=== PATIENT | male | born 1950 | race African-American/Black ===

== ENCOUNTER 2018-05-08 20:32 | Inpatient (IN) | payer BC, OTHER ==
[~2018-05-08] VITALS: Ht 185.4 cm; Wt 124.7 kg
[~2018-05-08 20:32] MED LIST: ALLO100T MT; DIXL10 PO; INDO75CA3 PO; LOVA40TA73 PO; NIFE30TA94 PO; OMEP20CA10 PO; VALS320T16 PO
[2018-05-08] MEDS ORDERED: SODIUM CHLORIDE 0.9% 1,000 ML IV ONE (22:30)
[2018-05-08] MEDS ORDERED: NITROGLYCERIN 0.4MG TABLET SL SL PRN (22:30)
[2018-05-08] MEDS ORDERED: ONDANSETRON HCL 4MG/2ML INJ IV STA (22:30)
[2018-05-08] MEDS ORDERED: MORPHINE SULFATE 4 MG/ML CPJ (NOT FOR IM USE) IV STA (22:30)
[2018-05-09] MEDS ORDERED: MORPHINE SULFATE 4 MG/ML CPJ (NOT FOR IM USE) IV ONE (00:30)
[2018-05-09 01:27] LABS: BASOPHILS % 0.4 % (0.0-2.0); EOSINOPHILS % 0.4 % (0.0-5.0); HEMATOCRIT. 34.5 % (42.0-52.0); HEMOGLOBIN. 11.8 g/dL (14.0-18.0); LYMPHOCYTES % 15.6 % (20.0-50.0); MEAN CORPUSCULAR HEMOGLOBIN 29.6 pg (28.0-32.0); MEAN CORPUSCULAR VOLUME 86.9 fL (80.0-94.0); MEAN PLATELET VOLUME 8.5 fl (7.4-10.4); MONOCYTES % 11.6 % (2.0-8.0); PLATELET 248 x1000/uL (130-400); RED BLOOD CELL COUNT 3.97 mill/uL (4.7-6.1); RED CELL DISTRIBUTION WIDTH 14.1 % (11.6-14.6)
[2018-05-09 01:31] LABS: CHLORIDE 101 mEq/L (98-107)
[2018-05-09 01:45] LABS: D-DIMER 4.09 mg/L FEU (<0.50); INR 1.1; PARTIAL THROMBOPLASTIN TIME 30.3 sec (23.4-31.0); PROTHROMBIN TIME 10.9 sec (9.1-11.1)
[2018-05-09] MEDS ORDERED: ASPIRIN 325MG EC TABLET PO ONE (03:15)
[2018-05-09] MEDS ORDERED: HYDROMORPHONE HCL/PF 2MG/ML CPJ IV PRN (05:45)
[2018-05-09] MEDS ORDERED: DIPHENHYDRAMINE 50MG/ML VIAL IV PRN (05:45)
[2018-05-09] MEDS ORDERED: ACETAMINOPHEN 325MG TABLET PO PRN (05:45)
[2018-05-09] MEDS ORDERED: MAGNESIUM/ALUMINUM HYDROXIDE/SIMETHICONE 30ML UDC PO PRN (05:45)
[2018-05-09] MEDS ORDERED: LORAZEPAM 2MG/ML CPJ IV PRN (05:45)
[2018-05-09] MEDS ORDERED: DOCUSATE SODIUM 100MG CAPSULE PO PRN (05:45)
[2018-05-09] MEDS ORDERED: IPRATROPIUM/ALBUTEROL 0.5-3(2.5)MG/3ML NEB INH PRN (05:45)
[2018-05-09] MEDS ORDERED: HYDRALAZINE 20MG/ML VIAL IV PRN (05:45)
[2018-05-09] MEDS ORDERED: CLONIDINE 0.1MG TABLET PO PRN (05:45)
[2018-05-09] MEDS ORDERED: GUAIFENESIN 200MG/10ML SUGAR FREE UDC PO PRN (05:45)
[2018-05-09] MEDS ORDERED: NA PHOS,M-B/NA PHOS,DI-BA ENEMA 118ML PR PRN (05:45)
[2018-05-09] MEDS ORDERED: ONDANSETRON HCL 4MG/2ML INJ IV PRN (05:45)
[2018-05-09] MEDS ORDERED: POTASSIUM CHLORIDE 20MEQ TABLET SR PO SCH (06:00)
[2018-05-09 06:53] VITALS: BP 139/81
[2018-05-09 08:00] VITALS: BP 105/69
[2018-05-09] MEDS: ASPIRIN 81MG EC TABLET PO SCH (09:58)
[2018-05-09] MEDS: ENOXAPARIN 30MG/0.3ML SYR SUBCUT SCH ×2 (09:59→20:55)
[2018-05-09] MEDS: SODIUM CHLORIDE 0.9% INJ 3ML FLUSH IVF SCH ×3 (10:00→21:03)
[2018-05-09] MEDS: HYDROCODONE/ACETAMINOPHEN 10/325MG TABLET PO PRN (10:10)
[2018-05-09 10:27] LABS: CREATINE KINASE MB FRACTION 1.4 ng/mL (0.5-3.6)
[2018-05-09] MEDS: NIFEDIPINE XL 30MG TAB PO SCH ×2 (11:30→20:56)
[2018-05-09 12:00] VITALS: BP 105/59
[2018-05-09] MEDS: OMEPRAZOLE 20MG CAPSULE EXTENDED RELEASE PO SCH (13:13)
[2018-05-09] MEDS ORDERED: MECL12.584 PO (14:57)
[2018-05-09 15:50] LABS: CREATINE KINASE 209 IU/L (39-308)
[2018-05-09 15:53] LABS: CREATINE KINASE MB FRACTION 1.2 ng/mL (0.5-3.6)
[2018-05-09 16:00] VITALS: BP 113/62
[2018-05-09 16:03] LABS: CLARITY URINE CLEAR (CLEAR); COLOR URINE DARK YELLOW (YELLOW); KETONES URINE NEGATIVE (NEGATIVE); LEUKOCYTE ESTERASE URINE NEGATIVE (NEGATIVE); NITRITE URINE NEGATIVE (NEGATIVE); OCCULT BLOOD URINE NEGATIVE (NEGATIVE); PROTEIN URINE NEGATIVE (NEGATIVE); SPECIFIC GRAVITY URINE 1.023 (1.005-1.030)
[2018-05-09 16:16] LABS: *AMPHETAMINES SCREEN URINE NEGATIVE (NEGATIVE); *BARBITURATES SCREEN URINE NEGATIVE (NEGATIVE); *BENZODIAZEPINES SCREEN URINE NEGATIVE (NEGATIVE); *COCAINE SCREEN URINE NEGATIVE (NEGATIVE); METHADONE URINE SCREEN NEGATIVE (NEGATIVE)
[2018-05-09 16:17] LABS: CANNABINOID URINE SCREEN NEGATIVE (NEGATIVE); OPIATES URINE SCREEN PRESUMTIVE POSITIVE (NEGATIVE); PHENCYCLIDINE URINE SCREEN NEGATIVE (NEGATIVE)
[2018-05-09] MEDS: MECLIZINE 12.5MG TABLET PO PRN (16:51)
[2018-05-09] MEDS: ALLOPURINOL 100 MG TABLET PO SCH (16:51)
[2018-05-09] MEDS ORDERED: MEDICATION NOT ON FORMULARY EA (Allopurinol 1 TAB) MT SCH (17:00)
[2018-05-09 20:48] VITALS: BP 104/59
[2018-05-10] VITALS: BP 113/51
[2018-05-10 04:38] VITALS: BP 117/63
[2018-05-10] MEDS: SODIUM CHLORIDE 0.9% INJ 3ML FLUSH IVF SCH ×3 (05:57→21:05)
[2018-05-10] MEDS: OMEPRAZOLE 20MG CAPSULE EXTENDED RELEASE PO SCH (06:32)
[2018-05-10 07:38] LABS: BASOPHILS % 0.7 % (0.0-2.0); EOSINOPHILS % 2.5 % (0.0-5.0); HEMATOCRIT. 34.9 % (42.0-52.0); HEMOGLOBIN. 11.7 g/dL (14.0-18.0); LYMPHOCYTES % 18.3 % (20.0-50.0); MEAN CORPUSCULAR HEMOGLOBIN 29.2 pg (28.0-32.0); MEAN CORPUSCULAR VOLUME 87.6 fL (80.0-94.0); MEAN PLATELET VOLUME 8.7 fl (7.4-10.4); MONOCYTES % 11.5 % (2.0-8.0); PLATELET 238 x1000/uL (130-400); RED BLOOD CELL COUNT 3.99 mill/uL (4.7-6.1); RED CELL DISTRIBUTION WIDTH 13.7 % (11.6-14.6)
[2018-05-10 08:01] VITALS: BP 125/59
[2018-05-10] MEDS: HYDROCODONE/ACETAMINOPHEN 10/325MG TABLET PO PRN ×2 (08:19→14:44)
[2018-05-10] MEDS: ENOXAPARIN 30MG/0.3ML SYR SUBCUT SCH ×2 (08:22→20:36)
[2018-05-10] MEDS: ASPIRIN 81MG EC TABLET PO SCH (09:05)
[2018-05-10] MEDS: ALLOPURINOL 100 MG TABLET PO SCH ×2 (09:05→17:31)
[2018-05-10] MEDS: NIFEDIPINE XL 30MG TAB PO SCH ×2 (09:05→20:36)
[2018-05-10 09:12] LABS: CHLORIDE 101 mEq/L (98-107)
[2018-05-10 09:30] LABS: LDL CHOLESTEROL 83 mg/dL (5-100)
[2018-05-10 09:31] LABS: CREATINE KINASE 144 IU/L (39-308); CREATINE KINASE MB FRACTION < 1.0 ng/mL (0.5-3.6)
[2018-05-10 09:32] LABS: HDL CHOLESTEROL 38 mg/dL (40-59); T4 FREE 1.31 ng/dL (0.76-1.46)
[2018-05-10] MEDS: SODIUM CHLORIDE 0.45% 1,000 ML IV SCH (12:42)
[2018-05-10 14:40] VITALS: BP 138/58
[2018-05-10 19:12] VITALS: BP 124/69
[2018-05-10 20:00] VITALS: BP 120/47
[2018-05-11] VITALS: BP 100/52
[2018-05-11 04:00] VITALS: BP 114/52
[2018-05-11] MEDS: SODIUM CHLORIDE 0.45% 1,000 ML IV SCH (05:03)
[2018-05-11] MEDS: SODIUM CHLORIDE 0.9% INJ 3ML FLUSH IVF SCH ×2 (05:49→14:38)
[2018-05-11] MEDS: OMEPRAZOLE 20MG CAPSULE EXTENDED RELEASE PO SCH (06:33)
[2018-05-11 08:00] VITALS: BP 136/73
[2018-05-11] MEDS: ASPIRIN 81MG EC TABLET PO SCH (09:06)
[2018-05-11] MEDS: NIFEDIPINE XL 30MG TAB PO SCH (09:06)
[2018-05-11] MEDS: ALLOPURINOL 100 MG TABLET PO SCH (09:06)
[2018-05-11] MEDS: ENOXAPARIN 30MG/0.3ML SYR SUBCUT SCH (09:07)
[2018-05-11 09:27] LABS: BASOPHILS % 0.5 % (0.0-2.0); HEMATOCRIT. 34.5 % (42.0-52.0); HEMOGLOBIN. 11.6 g/dL (14.0-18.0); LYMPHOCYTES % 23.7 % (20.0-50.0); MEAN CORPUSCULAR HEMOGLOBIN 29.3 pg (28.0-32.0); MEAN CORPUSCULAR VOLUME 86.8 fL (80.0-94.0); MEAN PLATELET VOLUME 8.6 fl (7.4-10.4); MONOCYTES % 14.5 % (2.0-8.0); NEUTROPHILS % 58.3 % (40.0-76.0); PLATELET 246 x1000/uL (130-400); RED BLOOD CELL COUNT 3.97 mill/uL (4.7-6.1); RED CELL DISTRIBUTION WIDTH 13.9 % (11.6-14.6)
[2018-05-11 09:44] LABS: CHLORIDE 103 mEq/L (98-107)
[2018-05-11] MEDS ORDERED: POTASSIUM CHLORIDE 20MEQ TABLET SR PO NR (10:30)
[2018-05-11 12:00] VITALS: BP 131/75
[2018-05-11] MEDS: HYDROCODONE/ACETAMINOPHEN 10/325MG TABLET PO PRN (14:16)
[2018-05-11] MEDS: MECLIZINE 12.5MG TABLET PO PRN (14:22)
[2018-05-11 15:59] VITALS: BP 128/70
[2018-05-11 16:00] VITALS: BP 125/61
[2018-05-12 09:07] LABS: COMPLEMENT C3 221 mg/dL (82-167)
[2018-05-12 17:08] LABS: ANTI-NUCLEAR ANTIBODIES DIRECT Negative (Negative)
== END 2018-05-11 17:40 | disposition home or self-care (01) | DRG 683 ==
LOC: ER 20:32 → EDBEDREQ 05-09 02:55 → ENRESERV 05-09 05:26 → 6WST 05-09 06:48
PROVIDERS: ADMIT Internal Medicine; ATTEND Internal Medicine
DX: N17.9 Acute kidney failure, unspecified (principal); E44.0 Moderate protein-calorie malnutrition; I13.0 Hypertensive heart and chronic kidney disease with heart failure and stage 1 through stage 4 chronic kidney disease, or unspecified chronic kidney disease; R07.89 Other chest pain; M10.9 Gout, unspecified; K21.9 Gastro-esophageal reflux disease without esophagitis; R10.9 Unspecified abdominal pain; E86.9 Volume depletion, unspecified; E78.5 Hyperlipidemia, unspecified; E78.00 Pure hypercholesterolemia, unspecified; R07.9 Chest pain, unspecified; I25.10 Atherosclerotic heart disease of native coronary artery without angina pectoris; I50.9 Heart failure, unspecified; E87.6 Hypokalemia; N18.9 Chronic kidney disease, unspecified; D64.9 Anemia, unspecified; Z85.46 Personal history of malignant neoplasm of prostate; Z92.3 Personal history of irradiation; Z68.36 Body mass index [BMI] 36.0-36.9, adult
CPT/HCPCS: 36415; 71045; 73560; 73562; 74176; 78582; 80048; 80061; 80305; 82550; 82553; 83735; 83880; 84439; 84443; 84484; 84550; 85379; 86038; 86160; 93005; 93306; 93970; 96361; 96374; 96375; 99285; A9558; J1170; J1650; J2270; J2405; J7030; J8597

== ENCOUNTER 2019-10-16 16:16 | Inpatient (IN) | payer OTHER ==
[~2019-10-16] VITALS: Ht 185.4 cm; Wt 118.4 kg
[~2019-10-16 16:16] MED LIST changes: -DIXL10 PO; -INDO75CA3 PO; +MECL-183 PO; -OMEP20CA10 PO; +OMEP20CA14 PO; -VALS320T16 PO
[2019-10-16] MEDS ORDERED: ASPI-1497 PO (16:20)
[2019-10-16] MEDS ORDERED: SODIUM CHLORIDE 0.9% 1,000 ML IV ONE (16:32)
[2019-10-16 17:25] LABS: BASOPHILS % 0.2 % (0.0-2.0); HEMATOCRIT. 41.4 % (42.0-52.0); HEMOGLOBIN. 13.9 g/dL (14.0-18.0); LYMPHOCYTES % 50.5 % (20.0-50.0); MEAN CORPUSCULAR HEMOGLOBIN 32.4 pg (28.0-32.0); MEAN CORPUSCULAR VOLUME 96.9 fL (80.0-94.0); MEAN PLATELET VOLUME 11.6 fl (7.4-10.4); MONOCYTES % 7.1 % (2.0-8.0); NEUTROPHILS % 41.2 % (40.0-76.0); PLATELET 200 x1000/uL (130-400); RED BLOOD CELL COUNT 4.28 mill/uL (4.7-6.1); RED CELL DISTRIBUTION WIDTH 13.7 % (11.6-14.6)
[2019-10-16] MEDS ORDERED: FENTANYL CITRATE/PF 50MCG/ML 2ML VIAL IV ONE (17:30)
[2019-10-16 17:31] LABS: PROTHROMBIN TIME 10.8 sec (9.6-11.0)
[2019-10-16 17:39] LABS: CHLORIDE 87 mEq/L (98-107)
[2019-10-16 17:43] LABS: ETHANOL BLOOD < 10 mg/dL
[2019-10-16 18:14] LABS: CLARITY URINE CLOUDY (CLEAR); COLOR URINE RED (YELLOW); KETONES URINE NEGATIVE (NEGATIVE); LEUKOCYTE ESTERASE URINE 2+ (NEGATIVE); NITRITE URINE POSITIVE (NEGATIVE); OCCULT BLOOD URINE 2+ (NEGATIVE); PROTEIN URINE 2+ (NEGATIVE); SPECIFIC GRAVITY URINE 1.032 (1.005-1.030); UROBILINOGEN URINE 0.2 E.U./dL (0.2-1.0)
[2019-10-16] MEDS ORDERED: INSULIN REGULAR (HUMULIN R) 300UNITS/3ML IV ONE (18:15)
[2019-10-16] MEDS ORDERED: CEFTRIAXONE 1 G PREMIX 50 ML IV ONE (18:45)
[2019-10-16 18:46] LABS: *AMPHETAMINES SCREEN URINE NEGATIVE (NEGATIVE); *BARBITURATES SCREEN URINE NEGATIVE (NEGATIVE)
[2019-10-16 18:47] LABS: *BENZODIAZEPINES SCREEN URINE NEGATIVE (NEGATIVE); *COCAINE SCREEN URINE NEGATIVE (NEGATIVE); CANNABINOID URINE SCREEN NEGATIVE (NEGATIVE); METHADONE URINE SCREEN NEGATIVE (NEGATIVE); OPIATES URINE SCREEN NEGATIVE (NEGATIVE); PHENCYCLIDINE URINE SCREEN NEGATIVE (NEGATIVE)
[2019-10-16] MEDS ORDERED: DEXTROSE 50% WATER 50ML SYRINGE IV PRN (20:15)
[2019-10-16] MEDS: SODIUM CHLORIDE 0.9% 1,000 ML IV SCH (20:15)
[2019-10-16] MEDS: BLOOD SUGAR DIAGNOSTIC STRIP TEST SCH (21:55)
[2019-10-16] MEDS: INSULIN GLARGINE UD 100 UNITS/ML SYR SUBCUT SCH (22:00)
[2019-10-16] MEDS: INSULIN LISPRO 100 UNITS/ML SUBCUT SCH (22:48)
[2019-10-17] VITALS (9 sets, daily range): BP systolic 97–137; BP diastolic 51–76
[2019-10-17 05:37] LABS: BASOPHILS % 0.2 % (0.0-2.0); EOSINOPHILS % 0.9 % (0.0-5.0); HEMATOCRIT. 43.3 % (42.0-52.0); HEMOGLOBIN. 14.7 g/dL (14.0-18.0); LYMPHOCYTES % 40.4 % (20.0-50.0); MEAN CORPUSCULAR HEMOGLOBIN 31.9 pg (28.0-32.0); MEAN CORPUSCULAR VOLUME 93.7 fL (80.0-94.0); MEAN PLATELET VOLUME 11.3 fl (7.4-10.4); MONOCYTES % 8.2 % (2.0-8.0); NEUTROPHILS % 50.3 % (40.0-76.0); PLATELET 219 x1000/uL (130-400); RED BLOOD CELL COUNT 4.61 mill/uL (4.7-6.1); RED CELL DISTRIBUTION WIDTH 14.1 % (11.6-14.6)
[2019-10-17] MEDS: SODIUM CHLORIDE 0.9% 1,000 ML IV SCH ×2 (06:47→22:46)
[2019-10-17] MEDS: INSULIN LISPRO 100 UNITS/ML SUBCUT SCH ×7 (07:01→22:54)
[2019-10-17] MEDS: BLOOD SUGAR DIAGNOSTIC STRIP TEST SCH ×4 (07:30→21:00)
[2019-10-17] MEDS: INSULIN GLARGINE UD 100 UNITS/ML SYR SUBCUT SCH (11:51)
[2019-10-17] MEDS ORDERED: CEFTRIAXONE 1 G PREMIX 50 ML IV SCH (18:00)
[2019-10-17] MEDS: ACETAMINOPHEN 325MG TABLET PO PRN (18:18)
[2019-10-17] MEDS: TAMSULOSIN HCL 0.4MG SR CAPSULE PO SCH (18:18)
[2019-10-17] MEDS: ONDANSETRON HCL 4MG/2ML INJ IV PRN (21:45)
[2019-10-17] MEDS: CEFTRIAXONE 1 G PREMIX 50 ML IV SCH (22:46)
[2019-10-18] VITALS (12 sets, daily range): BP systolic 91–150; BP diastolic 43–71
[2019-10-18] MEDS: INSULIN GLARGINE UD 100 UNITS/ML SYR SUBCUT SCH ×2 (00:24→10:23)
[2019-10-18 05:11] LABS: BASOPHILS % 0.5 % (0.0-2.0); EOSINOPHILS % 1.1 % (0.0-5.0); HEMATOCRIT. 41.4 % (42.0-52.0); HEMOGLOBIN. 14.4 g/dL (14.0-18.0); LYMPHOCYTES % 51.3 % (20.0-50.0); MEAN CORPUSCULAR HEMOGLOBIN 32.3 pg (28.0-32.0); MEAN PLATELET VOLUME 11.2 fl (7.4-10.4); NEUTROPHILS % 40.1 % (40.0-76.0); PLATELET 191 x1000/uL (130-400); RED BLOOD CELL COUNT 4.45 mill/uL (4.7-6.1); RED CELL DISTRIBUTION WIDTH 14.1 % (11.6-14.6)
[2019-10-18] MEDS: BLOOD SUGAR DIAGNOSTIC STRIP TEST SCH ×4 (07:32→21:23)
[2019-10-18] MEDS: ACETAMINOPHEN 325MG TABLET PO PRN ×3 (08:00→23:49)
[2019-10-18] MEDS: TAMSULOSIN HCL 0.4MG SR CAPSULE PO SCH (08:00)
[2019-10-18] MEDS: INSULIN LISPRO 100 UNITS/ML SUBCUT SCH ×7 (08:01→21:37)
[2019-10-18] MEDS: SODIUM CHLORIDE 0.9% 1,000 ML IV SCH (12:42)
[2019-10-18] MEDS ORDERED: LACTULOSE 20G/30ML UDC PO SCH (19:00)
[2019-10-18] MEDS ORDERED: ASPIRIN 81MG TABLET PO SCH (19:00)
[2019-10-18] MEDS: CEFTRIAXONE 1 G PREMIX 50 ML IV SCH (21:23)
[2019-10-18] MEDS ORDERED: INSULIN GLARGINE UD 100 UNITS/ML SYR SUBCUT SCH (22:00)
[2019-10-19] VITALS (10 sets, daily range): BP systolic 107–149; BP diastolic 47–84
[2019-10-19] MEDS: INSULIN GLARGINE UD 100 UNITS/ML SYR SUBCUT SCH ×2 (01:13→10:30)
[2019-10-19] MEDS: SODIUM CHLORIDE 0.9% 1,000 ML IV SCH ×2 (01:15→15:23)
[2019-10-19] MEDS: ONDANSETRON HCL 4MG/2ML INJ IV PRN (04:10)
[2019-10-19] MEDS: BLOOD SUGAR DIAGNOSTIC STRIP TEST SCH ×2 (07:34→13:01)
[2019-10-19] MEDS: TAMSULOSIN HCL 0.4MG SR CAPSULE PO SCH (08:47)
[2019-10-19] MEDS: INSULIN LISPRO 100 UNITS/ML SUBCUT SCH ×2 (08:47→13:22)
[2019-10-19] MEDS ORDERED: ASPIRIN 81MG TABLET PO SCH (09:00)
[2019-10-19] MEDS ORDERED: POTASSIUM CHLORIDE INJ 40 MEQ in DEXT 5% WATER 250 ML IV NR (10:00)
[2019-10-19] MEDS ORDERED: DIATR MEGLU/DIATRIZOATE SOLN 30ML PO NR (10:45)
[2019-10-19] MEDS ORDERED: DIATR MEGLU/DIATRIZOATE SOLN 30ML ONE (11:22)
[2019-10-19] MEDS ORDERED: IOHEXOL-300 100 ML BOTTLE ONE (11:23)
[2019-10-19] MEDS ORDERED: MORPHINE SULFATE 2 MG/ML CPJ (NOT FOR IM USE) IV NR (12:45)
[2019-10-19] MEDS ORDERED: FAMOTIDINE 20MG/2ML VIAL IV SCH (12:45)
[2019-10-19] MEDS ORDERED: LANTUSUD SUBCUT (13:38)
[2019-10-19] MEDS ORDERED: TAMS-11 MT ×2 (13:39→17:35)
[2019-10-19] MEDS ORDERED: TRAM50TA3 MT (17:35)
[2019-10-19] MEDS ORDERED: INSU100I28 SQ (17:35)
== END 2019-10-19 19:07 | disposition home or self-care (01) | DRG 871 ==
LOC: ER 16:16 → 5EST 19:01 → EDBEDREQTM 19:05 → EDBEDREQ 19:05 → EDBEDREQSVC 19:05 → EDBEDREQTM 19:54 → EDBEDREQSVC 19:54 → EDBEDREQTM 20:02 → ENRESERV 20:56
PROVIDERS: ADMIT Internal Medicine; ATTEND Internal Medicine
DX: A41.9 Sepsis, unspecified organism (principal); N17.0 Acute kidney failure with tubular necrosis; K85.90 Acute pancreatitis without necrosis or infection, unspecified; N39.0 Urinary tract infection, site not specified; E87.1 Hypo-osmolality and hyponatremia; S37.22XA Contusion of bladder, initial encounter; S37.011A Minor contusion of right kidney, initial encounter; I10 Essential (primary) hypertension; E87.8 Other disorders of electrolyte and fluid balance, not elsewhere classified; E66.9 Obesity, unspecified; E11.65 Type 2 diabetes mellitus with hyperglycemia; E78.5 Hyperlipidemia, unspecified; M10.9 Gout, unspecified; E78.00 Pure hypercholesterolemia, unspecified; K76.0 Fatty (change of) liver, not elsewhere classified; R31.0 Gross hematuria; X58.XXXA Exposure to other specified factors, initial encounter; Z85.46 Personal history of malignant neoplasm of prostate; Z86.73 Personal history of transient ischemic attack (TIA), and cerebral infarction without residual deficits; Z90.79 Acquired absence of other genital organ(s); Z92.3 Personal history of irradiation; Z79.82 Long term (current) use of aspirin; Z79.899 Other long term (current) drug therapy; Z71.3 Dietary counseling and surveillance; Z68.34 Body mass index [BMI] 34.0-34.9, adult; Y93.89 Activity, other specified; Y92.89 Other specified places as the place of occurrence of the external cause; Y99.8 Other external cause status
CPT/HCPCS: 36415; 71045; 74176; 74177; 76770; 80048; 80053; 80305; 80320; 81003; 82010; 82533; 82962; 83036; 83605; 83930; 84484; 85025; 86850; 86900; 93005; 93970; 96365; 99291; J0696; J1815; J2270; J2405; J3480; J3490; J7030; J7060; Q9963; Q9967; G0480

== ENCOUNTER 2019-11-07 20:14 | Inpatient (IN) | payer OTHER ==
[~2019-11-07] VITALS: Ht 185.4 cm; Wt 117.6 kg
[~2019-11-07 20:14] MED LIST changes: +ASPI-1497 PO; +INSU100I28 SQ; +LANTUSUD SUBCUT; -NIFE30TA94 PO; +TAMS-11 MT; +TRAM50TA3 MT
[2019-11-07] MEDS ORDERED: SODIUM CHLORIDE 0.9% 1,000 ML IV ONE (20:48)
[2019-11-07] MEDS ORDERED: ONDANSETRON HCL 4MG/2ML INJ IV STA (20:48)
[2019-11-07 21:43] LABS: BASOPHILS % 0.3 % (0.0-2.0); HEMATOCRIT. 36.3 % (42.0-52.0); HEMOGLOBIN. 12.5 g/dL (14.0-18.0); LYMPHOCYTES % 51.2 % (20.0-50.0); MEAN CORPUSCULAR HEMOGLOBIN 32.1 pg (28.0-32.0); MEAN CORPUSCULAR VOLUME 93.4 fL (80.0-94.0); MEAN PLATELET VOLUME 9.5 fl (7.4-10.4); MONOCYTES % 4.9 % (2.0-8.0); NEUTROPHILS % 43.6 % (40.0-76.0); PLATELET 133 x1000/uL (130-400); RED BLOOD CELL COUNT 3.89 mill/uL (4.7-6.1); RED CELL DISTRIBUTION WIDTH 14.2 % (11.6-14.6)
[2019-11-07 21:50] LABS: CHLORIDE 99 mEq/L (98-107)
[2019-11-07 21:53] LABS: PROTHROMBIN TIME 10.9 sec (9.6-11.0)
[2019-11-07] MEDS ORDERED: MORPHINE SULFATE 4 MG/ML CPJ (NOT FOR IM USE) IV ONE (22:30)
[2019-11-07] MEDS ORDERED: SODIUM CHLORIDE 0.9% 100 ML IV ONE (22:30)
[2019-11-08 01:48] LABS: COLOR URINE YELLOW (YELLOW); KETONES URINE NEGATIVE (NEGATIVE); LEUKOCYTE ESTERASE URINE 1+ (NEGATIVE); NITRITE URINE NEGATIVE (NEGATIVE); OCCULT BLOOD URINE TRACE (NEGATIVE); PH URINE 6.5 (4.5-8.0); PROTEIN URINE 2+ (NEGATIVE); SPECIFIC GRAVITY URINE 1.009 (1.005-1.030)
[2019-11-08 01:51] LABS: CLARITY URINE HAZY (CLEAR)
[2019-11-08] MEDS ORDERED: ONDANSETRON HCL 4MG/2ML INJ IV PRN (10:30)
[2019-11-08] MEDS ORDERED: DEXTROSE 50% WATER 50ML SYRINGE IV PRN (10:45)
[2019-11-08] MEDS: BLOOD SUGAR DIAGNOSTIC STRIP TEST SCH ×4 (10:52→21:00)
[2019-11-08] MEDS: ENOXAPARIN 40MG/0.4ML SYR SUBCUT SCH (10:52)
[2019-11-08] MEDS: ACETAMINOPHEN 325MG TABLET PO PRN (10:53)
[2019-11-08] MEDS ORDERED: AZITHROMYCIN 500 MG in DEXT 5% WATER 250 ML IV SCH (11:00)
[2019-11-08] MEDS ORDERED: CEFTRIAXONE 1 G PREMIX 50 ML IV SCH (11:00)
[2019-11-08] MEDS ORDERED: KCL 20MEQ/100ML PREMIX 100 ML IV SCH (12:00)
[2019-11-08 13:04] LABS: PHOSPHORUS 2.8 mg/dL (2.5-4.9)
[2019-11-08] MEDS: INSULIN LISPRO 100 UNITS/ML SUBCUT SCH ×3 (15:05→21:00)
[2019-11-08 15:35] LABS: CREATINE KINASE 397 IU/L (39-308); CREATINE KINASE MB FRACTION < 1.0 ng/mL (0.5-3.6)
[2019-11-08 16:29] LABS: FERRITIN 1272 ng/mL (22-322)
[2019-11-08 16:40] LABS: HEPATITIS B SURFACE ANTIGEN NEGATIVE
[2019-11-08 17:09] LABS: HEPATITIS A AB IGM NEGATIVE (NEGATIVE)
[2019-11-08 21:00] VITALS: BP 110/51
[2019-11-08 23:20] LABS: CREATINE KINASE 450 IU/L (39-308)
[2019-11-08 23:21] LABS: CREATINE KINASE MB FRACTION < 1.0 ng/mL (0.5-3.6)
[2019-11-08] MEDS: MORPHINE SULFATE 2 MG/ML CPJ (NOT FOR IM USE) IV PRN (23:26)
[2019-11-09 00:02] VITALS: BP 110/51
[2019-11-09] MEDS ORDERED: AMLO5TAB88 PO (01:28)
[2019-11-09] MEDS ORDERED: CHLO25TA2 PO (01:29)
[2019-11-09] MEDS ORDERED: LISI-604 PO (01:30)
[2019-11-09] MEDS ORDERED: ALLO300T2 PO (01:32)
[2019-11-09 04:00] VITALS: BP 120/61
[2019-11-09] MEDS: ACETAMINOPHEN 325MG TABLET PO PRN (06:06)
[2019-11-09] MEDS: MORPHINE SULFATE 2 MG/ML CPJ (NOT FOR IM USE) IV PRN ×2 (06:07→10:08)
[2019-11-09 07:31] LABS: CHLORIDE 101 mEq/L (98-107)
[2019-11-09] MEDS: BLOOD SUGAR DIAGNOSTIC STRIP TEST SCH ×2 (07:32→12:40)
[2019-11-09 07:40] LABS: AMYLASE 90 IU/L (25-115)
[2019-11-09 07:41] LABS: BASOPHILS % 0.1 % (0.0-2.0); HEMATOCRIT. 32.1 % (42.0-52.0); LYMPHOCYTES % 40.9 % (20.0-50.0); MEAN CORPUSCULAR HEMOGLOBIN 31.8 pg (28.0-32.0); MEAN CORPUSCULAR VOLUME 93.1 fL (80.0-94.0); MEAN PLATELET VOLUME 10.5 fl (7.4-10.4); MONOCYTES % 6.3 % (2.0-8.0); NEUTROPHILS % 52.7 % (40.0-76.0); PLATELET 136 x1000/uL (130-400); RED BLOOD CELL COUNT 3.45 mill/uL (4.7-6.1); RED CELL DISTRIBUTION WIDTH 14.4 % (11.6-14.6)
[2019-11-09 08:00] VITALS: BP 104/69
[2019-11-09] MEDS: INSULIN LISPRO 100 UNITS/ML SUBCUT SCH ×2 (08:07→13:10)
[2019-11-09] MEDS ORDERED: AZITHROMYCIN 500 MG in DEXT 5% WATER 250 ML IV SCH (09:00)
[2019-11-09] MEDS ORDERED: PANTOPRAZOLE SODIUM 40 MG/VIAL IV SCH (09:00)
[2019-11-09] MEDS: ENOXAPARIN 40MG/0.4ML SYR SUBCUT SCH (09:35)
[2019-11-09] MEDS ORDERED: CEFTRIAXONE 1,000 MG in DEXTROSE 5% WATER 50 ML IV SCH (10:00)
[2019-11-09] MEDS ORDERED: DEXT 5%/0.9% NACL 1,000 ML IV SCH (10:00)
[2019-11-09 12:00] VITALS: BP 109/73
[2019-11-09 17:43] VITALS: BP 110/75
[2019-11-10] MEDS ORDERED: ENOXAPARIN 30MG/0.3ML SYR SUBCUT SCH (09:00)
== END 2019-11-09 18:10 | disposition short-term general hospital (02) | DRG 177 ==
LOC: ER 20:14 → 7WST 11-08 00:22 → ENRESERV 11-08 17:12 → CANRESERV 11-08 17:12 → ENRESERV 11-08 19:59
PROVIDERS: ADMIT Internal Medicine; ATTEND Internal Medicine
DX: U07.1 COVID-19 (principal); K85.90 Acute pancreatitis without necrosis or infection, unspecified; J12.89 Other viral pneumonia; N17.9 Acute kidney failure, unspecified; N39.0 Urinary tract infection, site not specified; E87.2 Acidosis; E87.1 Hypo-osmolality and hyponatremia; E66.9 Obesity, unspecified; E78.00 Pure hypercholesterolemia, unspecified; I12.9 Hypertensive chronic kidney disease with stage 1 through stage 4 chronic kidney disease, or unspecified chronic kidney disease; N18.9 Chronic kidney disease, unspecified; E11.22 Type 2 diabetes mellitus with diabetic chronic kidney disease; K52.9 Noninfective gastroenteritis and colitis, unspecified; N28.1 Cyst of kidney, acquired; K40.90 Unilateral inguinal hernia, without obstruction or gangrene, not specified as recurrent; D64.9 Anemia, unspecified; E87.6 Hypokalemia; R16.0 Hepatomegaly, not elsewhere classified; R22.9 Localized swelling, mass and lump, unspecified; Z85.46 Personal history of malignant neoplasm of prostate; Z68.34 Body mass index [BMI] 34.0-34.9, adult
CPT/HCPCS: 36415; 71045; 74176; 80053; 80061; 81003; 82150; 82550; 82553; 82728; 82962; 83036; 83540; 83550; 83735; 84100; 84484; 85025; 86705; 86709; 86803; 87340; 87635; 93005; 93970; 99285; C9113; J0456; J0696; J1650; J2270; J2405; J3480; J7030; J7042; J7050; J7060

== ENCOUNTER 2022-05-18 22:17 | Emergency (ER) | payer OTHER ==
[~2022-05-18] VITALS: Ht 185.4 cm; Wt 130.5 kg
[~2022-05-18 22:17] MED LIST changes: -ALLO100T MT; +ALLO300T2 PO; +AMLO5TAB88 PO; +CHLO25TA2 PO; +LISI20TA31 PO; -MECL-183 PO; +MECL-217 PO
[2022-05-19 02:54] LABS: BASOPHILS % 0.4 % (0.0-2.0); EOSINOPHILS % 1.4 % (0.0-5.0); HEMATOCRIT. 42.2 % (42.0-52.0); HEMOGLOBIN. 14.1 g/dL (14.0-18.0); MEAN CORPUSCULAR HEMOGLOBIN 31.7 pg (28.0-32.0); MEAN CORPUSCULAR VOLUME 94.8 fL (80.0-94.0); MEAN PLATELET VOLUME 9.7 fl (7.4-10.4); MONOCYTES % 7.3 % (2.0-8.0); NEUTROPHILS % 54.9 % (40.0-76.0); PLATELET 186 x1000/uL (130-400); RED BLOOD CELL COUNT 4.46 mill/uL (4.7-6.1); RED CELL DISTRIBUTION WIDTH 15.3 % (11.6-14.6)
[2022-05-19 03:11] LABS: CHLORIDE 105 mEq/L (98-107)
[2022-05-19 05:40] VITALS: BP 117/72
== END 2022-05-19 05:43 | disposition home or self-care (01) ==
LOC: ER 22:17
DX: R07.89 Other chest pain (principal); I10 Essential (primary) hypertension; E11.9 Type 2 diabetes mellitus without complications; Z98.890 Other specified postprocedural states; Z79.899 Other long term (current) drug therapy; Z68.38 Body mass index [BMI] 38.0-38.9, adult
CPT/HCPCS: 36415; 71045; 80053; 83880; 84484; 85025; 93005; 99285